=== PATIENT | male | born 1995 | race Caucasian/White ===

== ENCOUNTER → 2017-09-07 | Outpatient (CLI) | payer OTHER ==
--- NOTE | 2017-09-07 12:43 | RADIOLOGY REPORT (SQ) ---
EXAM DESCRIPTION: CT LT UPPER EXTREMITY WITHOUT COMPLETED DATE/TIME: 09/07/2017 12:28 pm REASON FOR STUDY: FRACTURE OF NAVICULAR BONE OF LEFT WRIST S62.002A UNSP FRACTURE OF NAVICULAR BONE OF LEFT WRIST, INIT Injured 07/27/2017 COMPARISON: None. TECHNIQUE: Axial imaging performed through the left wrist with reformatted oblique coronal and obliq ue sagittal imaging windowed for bone and soft tissues. All CT scanners at this facility use dose modulation, iterative reconstruction, and/or weight based d osing when appropriate to reduce radiation dose to as low as reasonably achievable (ALARA). [facility]: Dose Right [facility]: CareDose [facility]: Dose Right [facility]: Teradose 4D [facility]: [employer] RADIATION DOSE: CT Rad equipment meets quality standard of care and radiation dose reduction techniq ues were employed. CTDIvol: 2.6 mGy. DLP: 52 mGy-cm. mGy. LIMITATIONS: None. FINDINGS: Normal bone density. Nonunited subacute fracture of the left scaphoid bone is present, with widening along the dorsal aspe ct of the fracture line best shown on sagittal image 28 and coronal images 16 through 19. No bony br idging callus. On coronal image 19 and sagittal image 25, the proximal half of the scaphoid bone is increased in den sity, worrisome for avascular necrosis. Remainder of the carpal bones, proximal metacarpals, distal radius and ulna are otherwise unremarkabl e. No soft tissue swelling. No soft tissue masses. 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 TECHNICAL DOCUMENTATION: JOB ID: [id number] Quality ID # [id number]: Final reports with documentation of one or more dose reduction techniques (e.g., Au tomated exposure control, adjustment of the mA and/or kV according to patient size, use of iterative reconstruction technique) 2010 [employer]- All Rights Reserved Reading location - IP/workstation name: [email or web address] [email or web address] [email or web address]
== END ==
LOC: RAD 11:41
PROVIDERS: ATTEND Orthopaedic Surgery
DX: S62.002A Unspecified fracture of navicular [scaphoid] bone of left wrist, initial encounter for closed fracture (principal); X58.XXXA Exposure to other specified factors, initial encounter

== ENCOUNTER 2017-11-26 14:17 | Day surgery (SDC) | payer OTHER ==
[~2017-11-26 14:17] MED LIST: ACETAMINOPHEN 1,000 MG/100 ML RTUPB IV ONE; BUPIVACAINE HCL 0.5 % INJ/PF 30 ML SDV ONE; CEFAZOLIN 2 GM/D5W RTU 2 GM/50 ML RTUPB IV PRN; DEXAMETHASONE SOD PHOSPHATE INJ 4 MG/1 ML VIAL ONE; FENTANYL CITRATE INJ/PF 100 MCG/2 ML AMPUL ONE; LIDOCAINE 2% INJ-PF (20 MG/ML) 10 ML AMPUL ONE; MIDAZOLAM 2 MG/2 ML INJ ONE; ONDANSETRON HCL INJ/PF 4 MG/2 ML SDV ONE; PROPOFOL INJ 200 MG/20 ML VIAL IV ONE
[2017-11-26] MEDS ORDERED: BUPIVACAINE HCL 0.5 % INJ/PF 30 ML SDV ONE (14:53)
[2017-11-26 15:02] LABS: HEMATOCRIT 41.2 % (37.9-51.0); HEMOGLOBIN 14.6 g/dL (13.5-17.0); MEAN CORPUSCULAR HEMOGLOBIN 30.4 pg (27.0-33.4); MEAN CORPUSCULAR HGB CONC 35.5 g/dL (32.0-36.0); MEAN CORPUSCULAR VOLUME 86 fl (80-97); PLATELET COUNT 232 10^3/uL (150-450); RED CELL DISTRIBUTION WIDTH 13.9 % (11.5-14.0)
[2017-11-26 15:23] LABS: ANION GAP 14 (5-19); BLOOD UREA NITROGEN 13 mg/dL (7-20); CALCIUM 9.8 mg/dL (8.4-10.2); CARBON DIOXIDE 24 mmol/L (22-30); CHLORIDE 105 mmol/L (98-107); GLUCOSE 99 mg/dL (75-110); POTASSIUM 4.2 mmol/L (3.6-5.0); SODIUM 142.9 mmol/L (137-145)
[2017-11-26] MEDS ORDERED: PROMETHAZINE HCL INJ 25 MG/1 ML VIAL IV PRN ×2 (17:10)
[2017-11-26] MEDS ORDERED: FENTANYL CITRATE INJ/PF 100 MCG/2 ML AMPUL IV PRN ×3 (17:10)
[2017-11-26] MEDS ORDERED: MORPHINE SULFATE 10 MG/ML INJ IV PRN ×2 (17:10→18:53)
[2017-11-26] MEDS ORDERED: ONDANSETRON HCL INJ/PF 4 MG/2 ML SDV IV PRN (17:10)
[2017-11-26] MEDS ORDERED: DIPHENHYDRAMINE HCL 50 MG/ML VIAL IV PRN (17:10)
[2017-11-26] MEDS ORDERED: MEPERIDINE HCL/PF INJ 25 MG/1 ML DISP.SYRIN IV PRN (17:10)
[2017-11-26] MEDS ORDERED: OXYCODONE-ACETAMINOPHEN 5-325 MG TABLET PO PRN (18:53)
--- NOTE | 2017-11-26 18:53 | Discharge Summary ---
Discharge Summary (SDC) - Discharge Final Diagnosis: Right scaphoid nonunion Date of Surgery: 11/26/17 Discharge Date: 11/26/17 Condition: Good Treatment or Instructions: Schedule Follow Up w/ Dr. Jean Jeffrey @ [facility] to be seen in 10-14 days or as scheduled [place]: [place]: [place]: Ice and elevate Keep splint clean/dry/intact. If your fingers become numb please unwrap the Phill wrap but leave the splint in place, if the sensation does not return within 30 minutes please return to the emergency department. May begin finger range of motion attempting to make full fist. Please use ibuprofen (Motrin or Advil) 600-800 mg every 8 hours as needed for pain or fever DO NOT TAKE w/ TORADOL may use once TORADOL complete. You may also use acetaminophen (Tylenol) 1000 mg every 4-6 hours as needed for pain or fever. Please be aware that many medications contain acetaminophen, do not exceed a total of 1000 mg of acetaminophen every 6 hours. If ibuprofen and acetaminophen are not sufficient for your pain you may take the Percocet/[place]. Please be aware that the Percocet/[place] does contain Tylenol. Stool softener of choice when on pain medication. Prescriptions: Oxycodone HCl/Acetaminophen [Percocet 5-325 mg Tablet] 1 tab PO Q6 #25 tablet Discharge Diet: As Tolerated Respiratory Treatments at Home: Deep Breathing/Coughing Discharge Activity: No Lifting Over 10 Pounds, No Lifting/Push/Pulling Report the Following to Your Physician Immediately: Fever over 101 Degrees, Unusual Bleeding, Redness, Swelling, Warmth, Increased Soreness
--- NOTE | 2017-11-26 19:02 | RADIOLOGY REPORT (SQ) ---
EXAM DESCRIPTION: WRIST LEFT 2 VIEWS; NO CHG FLUORO COMPLETED DATE/TIME: 11/26/2017 6:49 pm REASON FOR STUDY: ORIF LEFT WRIST COMPARISON: None. FLUOROSCOPY TIME: 1 minutes 49 seconds 5 Images saved to PACS LIMITATIONS: None. PROCEDURE: ORIF navicular fracture. FINDINGS: Images from fluoro document placement of a long cannulated screw in the navicular. A coup le pins are present. IMPRESSION: ORIF navicular fracture. COMMENT: PQRS 6045F: Fluoroscopy time of the procedure is documented in the report. TECHNICAL DOCUMENTATION: JOB ID: [id number] [employer]- All Rights Reserved Reading location - IP/workstation name: [email or web address]
--- NOTE | 2017-11-26 19:02 | RADIOLOGY REPORT (SQ) ---
EXAM DESCRIPTION: WRIST LEFT 2 VIEWS; NO CHG FLUORO COMPLETED DATE/TIME: 11/26/2017 6:49 pm REASON FOR STUDY: ORIF LEFT WRIST COMPARISON: None. FLUOROSCOPY TIME: 1 minutes 49 seconds 5 Images saved to PACS LIMITATIONS: None. PROCEDURE: ORIF navicular fracture. FINDINGS: Images from fluoro document placement of a long cannulated screw in the navicular. A coup le pins are present. IMPRESSION: ORIF navicular fracture. COMMENT: PQRS 6045F: Fluoroscopy time of the procedure is documented in the report. TECHNICAL DOCUMENTATION: JOB ID: [id number] [employer]- All Rights Reserved Reading location - IP/workstation name: [email or web address]
--- NOTE | 2017-11-26 19:03 | Operative Report ---
Operative Report DATE OF SURGERY: 11/26/17 PREOPERATIVE DIAGNOSIS: Right scaphoid nonunion, failed hardware POSTOPERATIVE DIAGNOSIS: Same OPERATION: Revision open reduction internal fixation right scaphoid nonunion with removal of hardware and placement of distal radius autograft SURGEON: DENNY GILBERT ANESTHESIA: GA COMPLICATIONS: None ESTIMATED BLOOD LOSS: Minimal PROCEDURE: Indication for above procedure: 22-year-old male who sustained a scaphoid fracture of his right wrist. We attempted open reduction internal fixation which improved patient's discomfort however CT scan demonstrated persistent nonunion with migration of the previous hardware. At that time the decision was made to proceed with revision operative treatment including possible hardware removal with autograft. Risks and benefits were explained to the patient patient verbalized understanding consented for the procedure. Procedure In Detail: Patient was seen and evaluated in the preoperative holding area. The left upper extremity was initialized and marked. Patient received 2g of Ancef IV for bacterial prophylaxis. Patient was taken back to the operative room where transferred to the operative table and placed under general anesthesia. Once they were adequately anesthetized a nonsterile tourniquet was placed on the upper extremity. A surgical team debriefing was performed ensuring all instrumentation was available, the surgical procedure was discussed with possible concerns reviewed. The upper extremity was prepped with chlorhexidine and alcohol and draped in a sterile fashion. A timeout was done identifying correct patient, procedure and extremity everyone in attendance agree with this and verbalized no concerns. The extremity was exsanguinated the tourniquet was inflated to 250 mmHg. Previous skin incision was utilized nd extended in a proximal direction. Blunt dissection was performed. The superficial palmar branch of the radial artery was identified and coagulated with bipolar cautery. I then opened the CMC joint and identified the exposed hardware. A K wire was placed on the central aspect of the headless compression screw in the Arthrex headless compression screw removed removed. I then opened the radius scaphoid capitate ligament to identify the fracture site. Under direct visualization there is persistent nonunion there was evidence of some mild bone healing posteriorly but no evidence of healing anteriorly or ulnarly. At that point decision was made to proceed with revision ORIF and placement of autograft. The nonunion site was then opened and debrided until all fibrous tissue was removed and normal bone remained along the proximal and distal pulse. The incision was then extended further proximally to obtain distal radius autograft. Via Carlos approach the FCR was identified along the palmar cutaneous branch of the median nerve both retracted ulnarly. The pronator quadratus was then identified and a transverse skin incision was made to expose the volar surface of the distal radius. I then turned my attention to the nonunion site. The wrist was flexed to correct patient's DISI deformity a small stab incision was made radially. The superficial radial nerve was identified and retracted in the drill guide was placed to protect the surrounding soft tissues. A 0.045 K wire was then placed into the lunate to maintain the proximal pole alignment. The nonunion site was measured and the appropriate size graft was harvested from the distal radius including cancellus bone. The wound was then copiously irrigated with normal saline. While maintaining alignment a K wire for the Arthrex mini headless compression screw was placed in a more volar trajectory compared to the previous screw. C-arm fluoroscopy was obtained including AP, lateral, oblique and 45 pronated view to confirm appropriate placement of the K wire. Once I was satisfied with the placement once again a slight volar direction to avoid extrusion of my graft. The cancellus graft and that cortex graft packed into the nonunion site until there is no remaining area for graft. The K wire was then passed from proximal to distal. A second K wire was placed into the scaphoid capitate joint and a 20 mm mini Arthrex headless compression screw was placed. During passing of the screw the wrist was held in dorsiflexion to ensure maintained alignment and correction of the humpback deformity. There is good fixation of the scaphoid and graft. The previous 0.045 K wire that was placed to the distal radius was removed since it was spent at the articular surface and was replaced with a another K wire to maintain fixation along the proximal and distal pole. Final fluoroscopy films were obtained to confirm episcopal of the scaphoid height appropriate placement of graft and K wire. The bone graft harvest site was filled with Vitoss synthetic bone graft. The pronator quadratus was closed with interrupted 3-0 Vicryl suture. The scaphoid capitate ligament was closed with interrupted 3-0 Vicryl suture. Tourniquet was then deflated. Any peripheral bleeding was controlled with bipolar cautery into the wound was dry. The K wires were cut and bent left outside the skin. A total of 30 cc of 0.5% bupivacaine without epinephrine was injected for postoperative pain control. Subcutaneous tissues were closed with interrupted 4 -0 Monocryl suture. Skin was closed with 4-0 nylon suture. Wound was dressed with Xeroform 4 x 4's and patient was placed in a thumb spica splint in a volar splint maintaining neutral position. Sponge counts, instrument counts, needle counts counts were correct. Patient was then awoken from anesthesia. Transferred from the operating room table to the operating room stretcher. There was no intraoperative complications patient tolerated procedure well stable to PACU. Postoperative plan: Patient will follow-up the office in 2 weeks at which point we will obtain radiographs and he will be transitioned to a thumb spica cast. Patient will begin his bone stimulator immediately.
[2017-11-27 00:34] VITALS: BP 138/74
== END 2017-11-27 | disposition home or self-care (01) ==
LOC: 2S 14:17 → OROUT 14:17
PROVIDERS: ATTEND Orthopaedic Surgery
DX: S62.022K Displaced fracture of middle third of navicular [scaphoid] bone of left wrist, subsequent encounter for fracture with nonunion (principal); X58.XXXD Exposure to other specified factors, subsequent encounter; T84.29 Other mechanical complication of internal fixation device of other bones
CPT/HCPCS: 36415; 85027; 80048; 73100; 25440; C1898; C1713; J2250; J3490 ×2; J1100; J3010; J2405; J2704; J0690; J0131; 01830

== ENCOUNTER 2018-07-16 08:34 | Day surgery (SDC) | payer OTHER ==
[2018-07-09 10:47] LABS: ABSOLUTE EOSINOPHILS # (AUTO) 0.1 10^3/uL (0.0-0.6); ABSOLUTE MONOCYTES (AUTO) 0.4 10^3/uL (0.1-1.4); ABSOLUTE NEUT (AUTO) 2.9 10^3/uL (1.7-8.2); BASOPHILS % (AUTO) 0.4 % (0-2); EOSINOPHILS % (AUTO) 2.6 % (0-6); HEMATOCRIT 42.2 % (37.9-51.0); LYMPHOCYTES % (AUTO) 36.7 % (13-45); MEAN CORPUSCULAR HEMOGLOBIN 30.7 pg (27.0-33.4); MEAN CORPUSCULAR HGB CONC 35.6 g/dL (32.0-36.0); MEAN CORPUSCULAR VOLUME 86 fl (80-97); MONOCYTES % (AUTO) 6.9 % (3-13); PLATELET COUNT 230 10^3/uL (150-450); RED CELL DISTRIBUTION WIDTH 13.8 % (11.5-14.0); SEGMENTED NEUTROPHILS % (AUTO) 53.4 % (42-78); TOTAL CELLS COUNTED % (AUTO) 100 %; WHITE BLOOD COUNT 5.4 10^3/uL (4.0-10.5)
[2018-07-09 10:54] LABS: APPEARANCE,URINE CLEAR; BILIRUBIN,URINE NEGATIVE (NEGATIVE); COLOR,URINE YELLOW; GLUCOSE, URINE NEGATIVE (NEGATIVE); KETONES,URINE NEGATIVE (NEGATIVE); LEUKOCYTE ESTERASE,URINE NEGATIVE (NEGATIVE); NITRITE,URINE NEGATIVE (NEGATIVE); PROTEIN,URINE NEGATIVE (NEGATIVE)
[2018-07-09 11:14] LABS: ANION GAP 11 (5-19); BLOOD UREA NITROGEN 11 mg/dL (7-20); CARBON DIOXIDE 27 mmol/L (22-30); CHLORIDE 103 mmol/L (98-107); GLUCOSE 99 mg/dL (75-110); POTASSIUM 4.1 mmol/L (3.6-5.0); SODIUM 140.5 mmol/L (137-145)
[~2018-07-16 08:34] MED LIST changes: -BUPIVACAINE HCL 0.5 % INJ/PF 30 ML SDV ONE; +CEFAZOLIN 2 GM/D5W RTU 2 GM/50 ML RTUPB IV ONE; +LACTATED RINGERS 1000 ML IV PRN; +LIDOCAINE 0.5% INJ-PF (5 MG/ML) 50 ML SDV SUBCUT PRN; -LIDOCAINE 2% INJ-PF (20 MG/ML) 10 ML AMPUL ONE
[2018-07-16] MEDS ORDERED: BUPIVACAINE HCL 0.5 % INJ/PF 30 ML SDV ONE (10:23)
[2018-07-16] MEDS ORDERED: MEPERIDINE HCL/PF INJ 25 MG/1 ML DISP.SYRIN IV PRN (11:31)
[2018-07-16] MEDS ORDERED: PROMETHAZINE HCL INJ 25 MG/1 ML VIAL IV PRN ×2 (11:31)
[2018-07-16] MEDS ORDERED: MORPHINE SULFATE 10 MG/ML INJ IV PRN ×2 (11:31→12:19)
[2018-07-16] MEDS ORDERED: DIPHENHYDRAMINE HCL 50 MG/ML VIAL IV PRN (11:31)
[2018-07-16] MEDS ORDERED: ONDANSETRON HCL INJ/PF 4 MG/2 ML SDV IV PRN ×2 (11:31→12:19)
[2018-07-16] MEDS ORDERED: FENTANYL CITRATE INJ/PF 100 MCG/2 ML AMPUL IV PRN ×3 (11:31)
[2018-07-16] MEDS ORDERED: HYDROCODONE/ACETAMINOPHEN 5-325 MG TABLET PO PRN (12:19)
--- NOTE | 2018-07-16 12:20 | Discharge Summary ---
Discharge Summary (SDC) - Discharge Final Diagnosis: Left scaphoid nonunion Date of Surgery: 07/16/18 Discharge Date: 07/16/18 Condition: Good Treatment or Instructions: Schedule Follow Up w/ Dr. Jean Jeffrey @ [facility] for Surgery to be seen in 10-14 days or as scheduled [place]: [place]: [place]: Ice and elevate Keep splint clean/dry/intact, do not remove. If your fingers become numb please unwrap the Phill wrap but leave the splint in place, if the sensation does not return within 30 minutes please return to the emergency department. May begin finger range of motion attempting to make full fist. Please use ibuprofen (Motrin or Advil) 600-800 mg every 8 hours as needed for pain or fever DO NOT TAKE w/ TORADOL may use once TORADOL complete. You may also use acetaminophen (Tylenol) 1000 mg every 4-6 hours as needed for pain or fever. Please be aware that many medications contain acetaminophen, do not exceed a total of 1000 mg of acetaminophen every 6 hours. If ibuprofen and acetaminophen are not sufficient for your pain you may take the Percocet/[place]. Please be aware that the Percocet/[place] does contain Tylenol. Stool softener of choice when on pain medication. USE OF [id number] IBUPROFEN: Ibuprofen (Advil, Nuprin, Medipren, Motrin IB) is a medication for fever and pain control. In addition, it has anti- inflammatory effects which may be beneficial, especially in the treatment of injuries. It's best to take ibuprofen with food. Persons with ulcer disease or allergy to aspirin should notify their physician of this before taking ibuprofen. Ibuprofen can be given every four to six hours, for a total of four doses daily. Age Pain or fever dose Antiinflammatory dose 6-8 yr 200 mg (1 tab) 200 mg (1 tab) 9-11 yr 200 mg (1 tab) 200-400 mg (1-2 tab) 11-14 yr 200-400 mg (1-2 tab) 400 mg (2 tab) 15-adult 400 mg (2 tab) 600 mg (3 tab) ORAL NARCOTIC MEDICATION: You have been given a prescription for pain control. This medication is a narcotic. It's best taken with food, as nausea can result if taken on an empty stomach. Don't operate machinery or drive within six hours of taking this medication. Do not combine this medicine with alcohol, or with any medication which can cause sedation (such as cold tablets or sleeping pills) unless you get permission from the physician. Narcotics tend to cause constipation. If possible, drink plenty of fluids and eat a diet high in fiber and fruits. Please be aware that prescription narcotics also have the potential for abuse. People become addicted to these medications because of the general sense of wellbeing that they induce. This feeling along with a significant reduction in tension, anxiety, and aggression provides a stimulating seductive quality to these drugs. Once your pain is under control, we encourage you to discard your unused narcotics. Prescriptions: Oxycodone HCl/Acetaminophen [Percocet 5-325 mg Tablet] 1 tab PO Q6 PRN #25 tab PRN Reason: Discharge Diet: As Tolerated Respiratory Treatments at Home: Deep Breathing/Coughing Discharge Activity: No Lifting Over 10 Pounds, No Lifting/Push/Pulling Report the Following to Your Physician Immediately: Fever over 101 Degrees, Unusual Bleeding, Redness, Swelling, Warmth, Increased Soreness
--- NOTE | 2018-07-16 12:23 | Operative Report ---
Operative Report DATE OF SURGERY: 07/16/18 PREOPERATIVE DIAGNOSIS: Left wrist scaphoid nonunion with retained hardware POSTOPERATIVE DIAGNOSIS: Same OPERATION: Removal of hardware left wrist with excision distal scaphoid SURGEON: DENNY GILBERT ANESTHESIA: GA COMPLICATIONS: None ESTIMATED BLOOD LOSS: Minimal PROCEDURE: Indication for above procedure: 23-year-old male who sustained a scaphoid fracture. Patient with open reduction to fixation unfortunately developed nonunion and thus underwent revision fixation with bone graft. Patient continued to have lack of union. At that point we discussed treatment options including continued observation versus operative intervention which would include salvage seizure with distal scaphoid excision understanding and still may require future surgical intervention after discussing these risks and benefits joint decision was made to proceed with operative treatment. Procedure In Detail: Patient was seen and evaluated in the preoperative holding area. The upper extremity was initialized and marked. Patient received 2g of Ancef IV for bacterial prophylaxis. Patient was taken back to the operative room where transferred to the operative table and placed under general anesthesia. Once they were adequately anesthetized a nonsterile tourniquet was placed on the upper extremity. A surgical team debriefing was performed ensuring all instrumentation was available, the surgical procedure was discussed with possible concerns reviewed. The upper extremity was prepped with chlorhexidine and alcohol and draped in a sterile fashion. A timeout was done identifying correct patient, procedure and extremity everyone in attendance agree with this and verbalized no concerns. The extremity was exsanguinated the tourniquet was inflated to 250 mmHg. Distal aspect the previous skin incision was utilized. FCR tendon was retracted in the ulnar direction. CMC joint was identified and capsulotomy made. Previous retained screw was localized and removed completely. There was confirmed nonunion of the midway scaphoid with synovial fluid surrounding the previous screw. With utilization of C-arm fluoroscopy the nonunion site and discussed scaphoid was identified. Blunt dissection was performed throughout the distal scaphoid to adequately freed from surrounding soft tissues avoiding transection of the volar carpal ligaments. Once completely freed [place] elevator was placed circumferentially to ensure adequate release. Rondure was utilized to completely remove the distal scaphoid . A small remaining bone fragments were sharply removed from remaining carpal ligaments. C-arm fluoroscopy was then obtained confirming adequate removal. Under live fluoroscopy with radial/ulnar deviation and flexion extension stability of the midcarpal joint was confirmed. Wound was then copiously irrigated with normal saline. Surgifoam was placed into the defect. Capsule was closed with interrupted 3-0 Vicryl suture. Tourniquet was then deflated. Any peripheral bleeding was controlled with bipolar cautery until the wound was dry. Subcutaneous tissues closed with interrupted 4-0 Monocryl suture. Skin was closed with interrupted 4-0 nylon suture. 20 cc of 0.5% bupivacaine without epinephrine was injected for postoperative pain control. Patient was placed in a volar resting splint. Sponge counts, instrument counts, needle counts were correct. Patient was then awoken from anesthesia. Transferred from the operating room table to the operating room stretcher. There was no intraoperative complications patient tolerated procedure well stable to PACU. Postop plan: Patient will continue immobilization in a Exos brace for the next 6 weeks. 6 weeks follow-up will begin range of motion exercises.
[2018-07-16] MEDS: FENTANYL CITRATE INJ/PF 100 MCG/2 ML AMPUL ONE ×2 (12:28→12:33)
[2018-07-16] MEDS ORDERED: HYDROCODONE/ACETAMINOPHEN 5-325 MG TABLET ONE (13:12)
[2018-07-16 14:15] VITALS: BP 140/75
--- NOTE | 2018-07-16 16:20 | RADIOLOGY REPORT (SQ) ---
EXAM DESCRIPTION: NO CHG FLUORO; WRIST LEFT 2 VIEWS COMPLETED DATE/TIME: 07/16/2018 2:50 pm REASON FOR STUDY: LEFT SCAPHOID HARDWARE REMOVAL, BONE EXCISION ASST WITH FLUORO IN OR COMPARISON: None. FLUOROSCOPY TIME: 19 seconds 4 Images saved to PACS LIMITATIONS: None. PROCEDURE: Hardware removal. Bone excision. FINDINGS: Images from fluoro document the procedure. IMPRESSION: Hardware removal. Bone excision. Refer to operative note for further information. COMMENT: PQRS 6045F: Fluoroscopy time of the procedure is documented in the report. TECHNICAL DOCUMENTATION: JOB ID: [id number] [employer]- All Rights Reserved Reading location - IP/workstation name: [email or web address]
--- NOTE | 2018-07-16 16:20 | RADIOLOGY REPORT (SQ) ---
EXAM DESCRIPTION: NO CHG FLUORO; WRIST LEFT 2 VIEWS COMPLETED DATE/TIME: 07/16/2018 2:50 pm REASON FOR STUDY: LEFT SCAPHOID HARDWARE REMOVAL, BONE EXCISION ASST WITH FLUORO IN OR COMPARISON: None. FLUOROSCOPY TIME: 19 seconds 4 Images saved to PACS LIMITATIONS: None. PROCEDURE: Hardware removal. Bone excision. FINDINGS: Images from fluoro document the procedure. IMPRESSION: Hardware removal. Bone excision. Refer to operative note for further information. COMMENT: PQRS 6045F: Fluoroscopy time of the procedure is documented in the report. TECHNICAL DOCUMENTATION: JOB ID: [id number] [employer]- All Rights Reserved Reading location - IP/workstation name: [email or web address]
== END 2018-07-16 14:15 | disposition home or self-care (01) ==
LOC: OROUT 08:34
PROVIDERS: ATTEND Orthopaedic Surgery
DX: T84.84XA Pain due to internal orthopedic prosthetic devices, implants and grafts, initial encounter (principal); Y83.8 Other surgical procedures as the cause of abnormal reaction of the patient, or of later complication, without mention of misadventure at the time of the procedure
CPT/HCPCS: 36415; 85025; 80048; 81001; 73100; 20680; J2250; J3490; J1100; J3010; J2405; J2704; J0690; J0131; 01830